=== PATIENT | male | born 1990 | race Caucasian/White ===

== ENCOUNTER 2016-05-03 22:19 | Emergency (ER) | payer BC ==
[~2016-05-03] VITALS: Ht 195.6 cm; Wt 94.5 kg
--- OUTSIDE RECORDS SUMMARY | 2016-05-03 22:28 | XMS REPORT | Continuity Of Care Document ---
Author Author [facility] Organization [facility] Address [address] [place] [address] Phone Care Team Providers Care Employee Relations Representative Name Role Phone UNASSIGNED, PHYSICIAN Unavailable Unavailable TRISTEN JIMENEZ, A AT [phone] MICA JIMENEZ, Gabriel Unavailable RENETTA JIMENEZ, E Unavailable [phone] Results Lab Results Visit/Account #[id number] (August 03, 2013 9:14pm - August 03, 2013 11:45pm) Test Result Date/Time WORKMAN'S COMP DRUG SCREEN WORKMAN'S COMP DRUG SCREEN SENT OUT [id number] August 04, 2013 10:26am Allergies and Adverse Reactions Allergies and Adverse Reactions Patient Unit Number: [id number] Agent Type Reaction Severity Status Date NO KNOWN DRUG ALLERGIES Drug Allergy Unknown Unknown Active Unknown Date Problem List Problem List Visit/Account #[id number] (August 03, 2013 9:14pm - August 03, 2013 11:45pm) Acute Problems: Code/Condition Comments Documented Start Date Documented Resolved Date Code (s) Shoulder strain ICD10: S46.919A Strain of shoulder ICD9: 840.9 Strain of shoulder SNOMED: 047467340 Strain of shoulder Abrasion ICD10: T14.8 Abrasion ICD9: 919.0 Abrasion SNOMED: 925689896 Abrasion Plan of Care Plan Of Care Visit/Account #[id number] (August 03, 2013 9:14pm - August 03, 2013 11:45pm) Instructions/Comments: GENERAL INSTRUCTIONS IMPORTANT: We examined and treated you today on an emergency basis only. This was not a substitute for, or an effort to provide, complete medical care. In most cases, you must let your doctor check you again. Tell your doctor about any new or lasting problems. We cannot recognize and treat all injuries or illnesses in one Emergency Department visit. All xrays are overread by radiology, and you will be notified if there are any new findings. Also, you will be notified of any abnormal lab results that are incomplete at this time. If you have a primary doctor, their office will be notified via fax of your visit. You will need to call your primary doctor's office as soon as possible to schedule your recommended follow-up visit. After you leave, you should follow the instructions included. Call the [facility] Emergency Department if you have any problems or concerns You can reach [facility] ED at , [place] [address]. Take Lignum as directed for pain. Keep the areas clean and dry. Followup with your regular Dr. or return to emergency department as needed. Vital Signs Vital Signs Visit/Account #[id number] (August 03, 2013 9:14pm - August 03, 2013 11:45pm) Label First Result Last Result 3141-9: Weight Measured 182 lbs August 03, 2013 9:13pm 82.286437 kg August 03, 2013 9:13pm 8310-5: Body Temperature 97.5 degF August 03, 2013 9:13pm 97.5 degF August 03, 2013 9:13pm 8480-6: BP Systolic 148/ mmHg August 03, 2013 9:13pm 63/ mm[Hg] August 03, 2013 11:00pm 8867-4: Heart Rate 74 /min August 03, 2013 9:13pm 70 /min August 03, 2013 11:00pm 9279-1: Respiratory Rate 18 /min August 03, 2013 9:13pm 18 /min August 03, 2013 11:00pm Unmapped Query Mnemonic (RESP.SAT) Saturation 97 % August 03, 2013 9:13pm 97 % August 03, 2013 9:13pm Unmapped Query Mnemonic (VS.BMI) Body Mass Index (BMI) August 03, 2013 9:13pm August 03, 2013 9:13pm Functional Status Functional Status No Functional Status Data Medications Discharge Medications Visit/Account #[id number] (August 03, 2013 9:14pm - August 03, 2013 11:45pm) Medication Route Sig/Schedule Precondition/Indication Comments/ Instructions Codes NORCO 5-325(HYDROcodone/ACETAMINOPHEN) 1 EACH TABLET ORAL Q4S: EVERY 4 HOURS NORCO 5-325 (HYDROcodone/ACETAMINOPHEN) RxNorm: [id number] NORCO 5-325 (HYDROcodone/ACETAMINOPHEN) [facility]: [id number] History Of Encounters Encounters Visit/Account #[id number] (August 03, 2013 9:14pm - August 03, 2013 11:45pm) Account Status Physican Of Record Reason For Visit Visit Diagnosis Start Date/Time Stop Date/Time ER EDA RAMON MD RT ARM PAIN/INJURY 959.2: SHLDR/UPPER ARM INJ NOS ICD9 Aug 03, 2013 9:14pm Aug 03, 2013 11:45pm History of Procedures Procedure List No Procedures Discharge Instructions Discharge Instructions Visit/Account #[id number] (August 03, 2013 9:14pm - August 03, 2013 11:45pm) No Discharge Instructions Reports. Social History Social History Visit/Account #[id number] (August 03, 2013 9:14pm - August 03, 2013 11:45pm) Smoking Status Current every day smoker August 03, 2013 9:20pm Immunizations Immunizations Patient Unit Number: [id number] Immunizations No Immunizations Administered
[2016-05-03] MEDS ORDERED: SODIUM CHLORIDE FLUSH 3 ML SYR IV PRN (22:40)
[2016-05-03] MEDS ORDERED: ONDANSETRON 2 MG/ML (Z0FRAN) 2 ML VIAL IV ONE (22:40)
[2016-05-03] MEDS ORDERED: SODIUM CHLORIDE FLUSH 10 ML SYR IV PRN (22:40)
[2016-05-03] MEDS ORDERED: HYDROmorphone 1 MG/ML (DILAUDID) SYRINGE IV PRN (22:40)
[2016-05-03] MEDS ORDERED: KETOROLAC 30 MG/ML (TORADOL) 1 ML VIAL IV ONE (23:00)
[2016-05-03] MEDS ORDERED: OMEP20CA12 PO (23:00)
[2016-05-03 23:03] LABS: MEAN CORPUSCULAR HEMOGLOBIN 28.7 PG (26.0-34.0); MEAN CORPUSCULAR HGB CONC 35.4 g/dL (31.0-37.0); MEAN CORPUSCULAR VOLUME 81 FL (80-100); PLATELET COUNT 209 10^3uL (150-450); WHITE BLOOD COUNT 12.41 10^3uL (4.0-11.0)
[2016-05-03 23:12] LABS: ALBUMIN 5.5 g/dL (3.4-5.0); ANION GAP 19.9 MEQ/L (3-15); BAND NEUTROPHILS % 10 % (0-6); CALCULATED IONIZED CALCIUM 4.3 mg/dL (3.8-4.6); EOSINOPHILS % 1 % (0-4); LYMPHOCYTES # 0.7 #; MONOCYTES % 8 % (3-11); RBC MORPH NORMAL (NORMAL); SEGMENTED NEUTROPHILS % 75 % (51-67); TOTAL CELLS COUNTED 100
--- NOTE | 2016-05-03 23:21 | NUR ---
Applied 02@ /NC d/t patient's 02 sats dropping to 88% on RA since patient has had Dilaudid 1mg per IV on board. Will cont. to monitor. CAll light in reach.
[2016-05-04 00:22] LABS: COLOR,URINE Amber; GLUCOSE, URINE (UA) Negative (Negative); LEUKOCYTE ESTERASE ,URINE Negative (Negative); PH,URINE 5.5 (5.0 - 8.0); UROBILINOGEN,URINE 0.2 mg/dL (0.2-1.0)
[2016-05-04 00:38] LABS: BILIRUBIN,URINE 1+ (Negative); CLARITY,URINE Slightly Cloudy
[2016-05-04 00:44] LABS: AMORPHOUS SEDIMENT,UR 1+ /HPF; URINE CENTRIFUGED VOLUME 12 mL
[2016-05-04 01:55] VITALS: BP 135/70
== END 2016-05-04 01:58 | disposition home or self-care (01) ==
LOC: ED 22:23
DX: R11.2 Nausea with vomiting, unspecified (principal); R19.7 Diarrhea, unspecified; R10.11 Right upper quadrant pain
CPT/HCPCS: 36415; 80053; 81003; 81015; 82150; 83605; 83690; 85025; 96361; 96374; 96375; 99285; J1170; J1885; J2405; J7030; 99282

== ENCOUNTER → 2016-05-05 | Outpatient (CLI) | payer BC ==
[~2016-05-05] MED LIST: OMEP20CA12 PO
--- NOTE | 2016-05-05 12:07 | Diagnostic Imaging Report ---
PROCEDURE: US Gallbladder. TECHNIQUE: Multiple real-time grayscale images were obtained over the right upper quadrant in various projections. INDICATION: Right upper quadrant abdominal pain. FINDINGS: The visualized portions of the head and body of the pancreas are negative. The tail is obscured by bowel gas. Liver size is upper normal. No focal hepatic lesion is seen. Hepatopetal flow is present in the main portal vein. No intrahepatic bile duct dilatation is identified. CBD is normal at 4 to 5 mm. The gallbladder is negative. No free fluid is seen. The right kidney is negative. IMPRESSION: 1. Negative right upper quadrant ultrasound. Dictated by: Dictated on workstation # [id number]
== END ==
LOC: RAD 09:31
PROVIDERS: ATTEND Family Medicine
DX: R10.11 Right upper quadrant pain (principal)
CPT/HCPCS: 76705